=== PATIENT | female | born 1950 | race Caucasian/White ===

== ENCOUNTER 2018-03-13 12:06 | Inpatient (IN) ==
[2018-03-13] MEDS ORDERED: ORPHENADRINE 60 MG/2 ML VIAL IV STA (12:36)
[2018-03-13] MEDS ORDERED: KETOROLAC 30 MG/1 ML VIAL IV STA (12:36)
[2018-03-13] MEDS ORDERED: ONDANSETRON 4 MG/2 ML VIAL IV STA (12:36)
[2018-03-13] MEDS ORDERED: methylPREDNISolone SOD SUC 125 MG/2 ML VIAL IV STA (12:36)
[2018-03-13] MEDS ORDERED: ACETAMINOPHEN 325 MG TABLET PO PRN (14:10)
[2018-03-13] MEDS ORDERED: MORPHINE 4 MG/1 ML VIAL IV PRN (14:10)
[2018-03-13] MEDS ORDERED: GLUCAGON 1 MG VIAL IM PRN (14:10)
[2018-03-13] MEDS ORDERED: DEXTROSE 50% 25 GM/50 ML VIAL IV PRN (14:10)
[2018-03-13] MEDS ORDERED: ONDANSETRON 4 MG/2 ML VIAL IV PRN (14:10)
[2018-03-13 14:16] LABS: Basophils # 0.1 10*3/uL (0.0-0.2); Basophils % 0.5 % (0.0-0.8); Eosinophils # 0.2 10*3/uL (0.0-0.87); Eosinophils % 1.4 % (0.00-10.9); Hematocrit 37.6 VOL% (35.7-47.0); Hemoglobin 12.1 GM/DL (12.0-16.0); Immature Granulocytes % 0.5 %; Immature Granulocytes Absolute 0.05 #; Lymphocytes # 2.5 10*3/uL (1.4-4.0); Lymphocytes % 22.7 % (21.3-54.2); Mean Corpuscular HGB Conc 32.2 GM/DL (32-36); Mean Corpuscular Hemoglobin 30 PG (27-34); Mean Corpuscular Volume 91.9 FL (87-102); Mean Platelet Volume 10.4 FL (9.6-12.0); Monocytes # 0.4 10*3/uL (0.11-0.8); Monocytes % 4.1 % (1.7-12.7); Neutrophils # 7.7 10*3/uL (1.4-7.4); Neutrophils % 70.8 % (38.7-73.9); Platelet Count 230 T/CUMM (130-400); Red Blood Count 4.09 MC/CUMM (3.8-5.5); Red Cell Distribution Width 13.3 % (9.3-17.3); White Blood Count 10.8 T/CUMM (4-12)
[2018-03-13 14:28] LABS: PT Patient Result 10.9 SECS; Partial Thromboplastin Time 28.2 SECS (0-40)
[2018-03-13 14:42] LABS: Alanine Aminotransferase 36 U/L (13-56); Albumin 2.9 G/DL (3.4-5.0); Alkaline Phosphatase 161 U/L (45-117); Aspartate Amino Transferase 45 U/L (0-37); Bilirubin,Total < 0.39 MG/DL (0.2-1.0); Blood Urea Nitrogen 17 MG/DL (7-18); Calcium 8.7 MG/DL (8.5-10.1); Glucose 146 MG/DL (74-106); Osmolality,Calculated 283.4 MOS/KG (273-304); Sodium 140 MMOL/L (136-145); Total Protein 7.1 G/DL (6.4-8.3)
[2018-03-13] MEDS ORDERED: METHOCARBAMOL 500 MG TABLET PO PRN (15:44)
[2018-03-13] MEDS: INSULIN LISPRO 100 UNIT/ML SUBCUT SCH ×2 (16:31→21:30)
[2018-03-13] MEDS: LIDOCAINE 5% PATCH TRANSDERM SCH (16:37)
[2018-03-13 19:16] LABS: Apearance,Urine CLEAR (Clear); Bacteria,Urine Moderate /HPF (Few); Bilirubin,Urine Negative (Negative); Blood, Urine Negative (Negative); Glucose,Urine (UA) 50 mg/dL (Negative); Ketones,Urine Negative (Negative); Mucus,Urine Occasional /LPF (Occasional); Nitrite,Urine Positive (Negative); Protein,Urine Negative; RBC,Urine 1 /HPF (0-4); Urine Color Yellow (Yellow); Urine Specific Gravity 1.023 (1.001-1.035); Urine Urobilinogen < 2.0 EU/DL (0.2-1.0); WBC,Urine 2 /HPF (0-6)
[2018-03-13] MEDS: OXYBUTYNIN 5 MG TABLET PO SCH (21:28)
[2018-03-13] MEDS: SERTRALINE 25 MG TABLET PO SCH (21:28)
[2018-03-13] MEDS: ATORVASTATIN 40 MG TABLET PO SCH (21:28)
[2018-03-14] MEDS: traMADol 50 MG TABLET PO PRN ×3 (04:35→20:41)
[2018-03-14 05:23] LABS: Basophils % 0.3 % (0.0-0.8); Eosinophils % 0.3 % (0.00-10.9); Hematocrit 36.3 VOL% (35.7-47.0); Hemoglobin 11.4 GM/DL (12.0-16.0); Immature Granulocytes % 0.5 %; Immature Granulocytes Absolute 0.06 #; Lymphocytes # 2.8 10*3/uL (1.4-4.0); Lymphocytes % 23.4 % (21.3-54.2); Mean Corpuscular HGB Conc 31.4 GM/DL (32-36); Mean Corpuscular Hemoglobin 29 PG (27-34); Mean Corpuscular Volume 93.3 FL (87-102); Mean Platelet Volume 10.6 FL (9.6-12.0); Monocytes # 0.8 10*3/uL (0.11-0.8); Monocytes % 6.3 % (1.7-12.7); Neutrophils # 8.3 10*3/uL (1.4-7.4); Neutrophils % 69.2 % (38.7-73.9); Platelet Count 241 T/CUMM (130-400); Red Blood Count 3.89 MC/CUMM (3.8-5.5); Red Cell Distribution Width 13.3 % (9.3-17.3)
[2018-03-14 05:43] LABS: Risk Ratio 1.9; VLDL CHOLESTEROL 17.2 MG/DL
[2018-03-14 05:55] LABS: Albumin 2.8 G/DL (3.4-5.0); Bilirubin,Total 0.4 MG/DL (0.2-1.0); Calcium 8.6 MG/DL (8.5-10.1); Osmolality,Calculated 280.5 MOS/KG (273-304); Potassium 3.9 MMOL/L (3.5-5.1); Total Protein 6.9 G/DL (6.4-8.3)
[2018-03-14] MEDS: INSULIN LISPRO 100 UNIT/ML SUBCUT SCH ×4 (07:30→20:23)
[2018-03-14] MEDS: METOPROLOL SUCCINATE XL 25 MG TABLET PO SCH (09:25)
[2018-03-14] MEDS: LISINOPRIL 10 MG TABLET PO SCH (09:25)
[2018-03-14] MEDS: SERTRALINE 50 MG TABLET PO SCH (09:25)
[2018-03-14] MEDS: OXYBUTYNIN 5 MG TABLET PO SCH ×2 (09:25→20:41)
[2018-03-14] MEDS: PANTOPRAZOLE 40 MG TABLET PO SCH (09:25)
[2018-03-14] MEDS: POLYETHYLENE GLYCOL POWDER 17 GM PACK PO SCH (09:30)
[2018-03-14] MEDS: LIDOCAINE 5% PATCH TRANSDERM SCH (09:30)
[2018-03-14] MEDS ORDERED: LACTULOSE 20 GM/30 ML UDCUP PO PRN (10:59)
[2018-03-14] MEDS ORDERED: CIPROFLOXACIN 500 MG TABLET PO SCH (11:00)
[2018-03-14] MEDS ORDERED: methylPREDNISolone SOD SUC 125 MG/2 ML VIAL IV PRN (11:09)
[2018-03-14] MEDS: cefTRIAXone 1,000 MG in SYRINGE 1 EACH IV SCH (11:55)
[2018-03-14] MEDS ORDERED: POLYETHYLENE GLYCOL POWDER 17 GM PACK PO SCH (12:00)
[2018-03-14] MEDS: SERTRALINE 25 MG TABLET PO SCH (20:41)
[2018-03-14] MEDS: ATORVASTATIN 40 MG TABLET PO SCH (20:41)
[2018-03-14] MEDS: DOCUSATE/SENNA 50-8.6 MG TABLET PO SCH (20:42)
[2018-03-15] MEDS: INSULIN LISPRO 100 UNIT/ML SUBCUT SCH ×3 (07:30→16:25)
[2018-03-15] MEDS: LIDOCAINE 5% PATCH TRANSDERM SCH (09:00)
[2018-03-15] MEDS: DOCUSATE/SENNA 50-8.6 MG TABLET PO SCH (09:00)
[2018-03-15] MEDS: POLYETHYLENE GLYCOL POWDER 17 GM PACK PO SCH (09:00)
[2018-03-15] MEDS: SERTRALINE 50 MG TABLET PO SCH (09:00)
[2018-03-15] MEDS: OXYBUTYNIN 5 MG TABLET PO SCH (09:00)
[2018-03-15] MEDS: PANTOPRAZOLE 40 MG TABLET PO SCH (09:40)
[2018-03-15] MEDS: LISINOPRIL 10 MG TABLET PO SCH (09:40)
[2018-03-15] MEDS: METOPROLOL SUCCINATE XL 25 MG TABLET PO SCH (09:40)
[2018-03-15] MEDS: cefTRIAXone 1,000 MG in SYRINGE 1 EACH IV SCH (10:21)
[2018-03-15] MEDS ORDERED: TISSUE ADHESIVE 1 EACH APPLICATOR TOP ONE (10:32)
[2018-03-15] MEDS ORDERED: DEXTROSE 50% 25 GM/50 ML VIAL IV ONE ×2 (10:46→10:53)
[2018-03-15] MEDS ORDERED: MINERAL OIL/PETROLATUM OPH OINT 3.5 GM TUBE ONE ×2 (11:11→12:21)
[2018-03-15] MEDS ORDERED: LIDOCAINE 1% 20 ML VIAL ONE (11:24)
[2018-03-15] MEDS ORDERED: SUGAMMADEX 200 MG/2 ML VIAL IV ONE (11:41)
[2018-03-15] MEDS ORDERED: RACEPINEPHRINE 0.5 ML NEB RESP TX ONE (12:13)
[2018-03-15] MEDS ORDERED: MIDAZOLAM 2 MG/2 ML VIAL ONE (12:18)
[2018-03-15] MEDS ORDERED: fentaNYL 100 MCG/2 ML VIAL ONE (12:19)
[2018-03-15] MEDS ORDERED: PHENYLEPHRINE 1 MG/10 ML SYRINGE IV ONE (12:20)
[2018-03-15] MEDS ORDERED: PROPOFOL 200 MG/20 ML VIAL IV ONE (12:20)
[2018-03-15] MEDS ORDERED: SEVOFLURANE 1 UNIT/15 MINUTE INH ONE (12:20)
[2018-03-15] MEDS ORDERED: ONDANSETRON 4 MG/2 ML VIAL ONE (12:20)
[2018-03-15] MEDS ORDERED: ROCURONIUM 100 MG/10 ML VIAL IV ONE (12:20)
[2018-03-15] MEDS: traMADol 50 MG TABLET PO PRN (16:25)
[2018-03-15 16:47] VITALS: BP 133/73
== END 2018-03-15 18:35 | disposition home or self-care (01) | DRG 516 ==
LOC: N.ED 12:06 → N.EDINP 14:10 → N.3E 14:54
PROVIDERS: ADMIT Internal Medicine; ATTEND Internal Medicine

== ENCOUNTER 2019-02-18 08:54 | Observation (INO) ==
[2019-02-18] MEDS ORDERED: KETOROLAC 60 MG/2 ML VIAL IM STA (09:38)
[2019-02-18] MEDS ORDERED: METHOCARBAMOL 500 MG TABLET PO STA (09:38)
[2019-02-18] MEDS ORDERED: ONDANSETRON ODT 4 MG TABLET PO STA (09:39)
[2019-02-18] MEDS ORDERED: ONDANSETRON 4 MG/2 ML VIAL IV PRN (11:59)
[2019-02-18] MEDS ORDERED: [UNRECOGNIZED DRUG - OTHER] PO PRN (11:59)
[2019-02-18] MEDS ORDERED: GLUCAGON 1 MG VIAL IM PRN (11:59)
[2019-02-18] MEDS ORDERED: ACETAMINOPHEN 325 MG TABLET PO PRN (11:59)
[2019-02-18] MEDS ORDERED: HydrOXYzine PAMOATE 25 MG CAPSULE PO PRN (11:59)
[2019-02-18] MEDS ORDERED: DULoxetine 20 MG CAPSULE PO PRN (11:59)
[2019-02-18] MEDS ORDERED: DEXTROSE 50% 25 GM/50 ML VIAL IV PRN (11:59)
[2019-02-18] MEDS ORDERED: [UNRECOGNIZED DRUG - OTHER] PO SCH (11:59)
[2019-02-18] MEDS: INSULIN REGULAR 100 UNIT/ML SUBCUT SCH ×2 (13:14→18:56)
[2019-02-18] MEDS: SODIUM CHLORIDE 0.9% 1,000 ML IV SCH (13:14)
[2019-02-18] MEDS: DOCUSATE/SENNA 50-8.6 MG TABLET PO SCH (20:21)
[2019-02-18] MEDS: DOCUSATE SODIUM 100 MG CAPSULE PO SCH (20:21)
[2019-02-18] MEDS: OXYBUTYNIN 5 MG TABLET PO SCH (20:21)
[2019-02-18] MEDS ORDERED: [UNRECOGNIZED DRUG - OTHER] PO SCH (21:00)
[2019-02-18] MEDS ORDERED: NITROFURANTOIN MACRO/MONO 100 MG CAPSULE PO SCH (21:00)
[2019-02-18] MEDS: HYDROmorphone 2 MG/1 ML VIAL IV PRN (21:18)
[2019-02-19] MEDS: INSULIN REGULAR 100 UNIT/ML SUBCUT SCH ×3 (01:02→12:27)
[2019-02-19] MEDS: SODIUM CHLORIDE 0.9% 1,000 ML IV SCH ×2 (01:14→15:23)
[2019-02-19 04:48] LABS: Basophils # 0.1 10*3/uL (0.0-0.2); Basophils % 0.5 % (0.0-0.8); Eosinophils # 0.3 10*3/uL (0.0-0.87); Eosinophils % 3.5 % (0.00-10.9); Hematocrit 34.6 VOL% (35.7-47.0); Hemoglobin 10.9 GM/DL (12.0-16.0); Immature Granulocytes % 0.4 %; Immature Granulocytes Absolute 0.04 #; Lymphocytes # 2.9 10*3/uL (1.4-4.0); Lymphocytes % 30.7 % (21.3-54.2); Mean Corpuscular HGB Conc 31.5 GM/DL (32-36); Mean Corpuscular Volume 92.3 FL (87-102); Mean Platelet Volume 10.7 FL (9.6-12.0); Monocytes % 8.1 % (1.7-12.7); Neutrophils % 56.8 % (38.7-73.9); Platelet Count 176 T/CUMM (130-400); Red Blood Count 3.75 MC/CUMM (3.8-5.5); Red Cell Distribution Width 14.9 % (9.3-17.3); White Blood Count 9.3 T/CUMM (4-12)
[2019-02-19 05:21] LABS: Albumin 2.2 G/DL (3.4-5.0); Bilirubin,Total 0.7 MG/DL (0.2-1.0); Calcium 8.3 MG/DL (8.5-10.1); Total Protein 5.9 G/DL (6.4-8.3)
[2019-02-19] MEDS: HYDROmorphone 2 MG/1 ML VIAL IV PRN (06:34)
[2019-02-19] MEDS: OXYBUTYNIN 5 MG TABLET PO SCH (09:00)
[2019-02-19] MEDS ORDERED: METOPROLOL SUCCINATE XL 25 MG TABLET PO SCH (09:00)
[2019-02-19] MEDS ORDERED: ATORVASTATIN 40 MG TABLET PO SCH (09:00)
[2019-02-19] MEDS ORDERED: LISINOPRIL 10 MG TABLET PO SCH (09:00)
[2019-02-19] MEDS ORDERED: SERTRALINE 100 MG TABLET PO SCH (09:00)
[2019-02-19] MEDS ORDERED: MELOXICAM 7.5 MG TABLET PO SCH (09:00)
[2019-02-19] MEDS ORDERED: PANTOPRAZOLE 40 MG TABLET PO SCH (09:00)
[2019-02-19] MEDS: DOCUSATE SODIUM 100 MG CAPSULE PO SCH (09:00)
[2019-02-19] MEDS: DOCUSATE/SENNA 50-8.6 MG TABLET PO SCH (09:00)
[2019-02-19] MEDS ORDERED: NF- (Mirabegron [Myrbetriq] 25 MG) PO SCH (09:00)
[2019-02-19 11:06] LABS: Apearance,Urine CLEAR (Clear); Bilirubin,Urine Negative (Negative); Blood, Urine Negative (Negative); Glucose,Urine (UA) 50 mg/dL (Negative); Hyaline Casts,Urine 3 /LPF (0-3); Ketones,Urine Negative (Negative); Mucus,Urine Occasional /LPF (Occasional); Nitrite,Urine Negative (Negative); Protein,Urine Negative; RBC,Urine 6 /HPF (0-4); Squamous Epithelial Cell,Urine Occasional /HPF (0-10); Urine Color Yellow (Yellow); Urine Specific Gravity 1.023 (1.001-1.035); Urine Urobilinogen < 2.0 EU/DL (0.2-1.0); WBC,Urine 2 /HPF (0-6)
[2019-02-19 11:44] VITALS: BP 127/63
[2019-02-19] MEDS ORDERED: DEXTROSE 50% 25 GM/50 ML VIAL IV PRN (12:02)
== END 2019-02-19 15:10 | disposition home health service (06) ==
LOC: EDUNIT# → EDBD → N.ED 08:54 → N.EDINP 08:54 → N.3E 10:37
PROVIDERS: ADMIT Family Medicine; ATTEND Family Medicine

== ENCOUNTER 2022-04-25 08:36 | Inpatient (IN) ==
[2022-04-25] MEDS ORDERED: MORPHINE 2 MG/1 ML SYRINGE IV ONE (09:06)
[2022-04-25] MEDS ORDERED: ONDANSETRON 4 MG/2 ML VIAL IV ONE (09:06)
[2022-04-25 09:39] LABS: Basophils % 0.3 % (0.0-0.8); Eosinophils # 0.1 10*3/uL (0.0-0.87); Eosinophils % 0.9 % (0.00-10.9); Hematocrit 36.7 VOL% (35.7-47.0); Hemoglobin 11.5 GM/DL (12.0-16.0); Immature Granulocytes % 0.5 %; Immature Granulocytes Absolute 0.06 #; Lymphocytes # 2.5 10*3/uL (1.4-4.0); Lymphocytes % 21.6 % (21.3-54.2); Mean Corpuscular HGB Conc 31.3 GM/DL (32-36); Mean Platelet Volume 10.4 FL (9.6-12.0); Monocytes # 0.6 10*3/uL (0.11-0.8); Monocytes % 5.2 % (1.7-12.7); Neutrophils % 71.5 % (38.7-73.9); Platelet Count 219 T/CUMM (130-400); Red Blood Count 4.08 MC/CUMM (3.8-5.5); Red Cell Distribution Width 15.2 % (9.3-17.3); White Blood Count 11.5 T/CUMM (4-12)
[2022-04-25 09:48] LABS: PT Patient Result 11.2 SECS (10.1-12.1)
[2022-04-25 10:01] LABS: Albumin 3.3 G/DL (3.4-5.0); Bilirubin,Total 0.6 MG/DL (0.20-1.00); Calcium 9.4 MG/DL (8.5-10.1); Osmolality,Calculated 286.4 MOS/KG (273-304); Potassium 4.4 MMOL/L (3.5-5.1); Total Protein 7.1 G/DL (6.4-8.2)
[2022-04-25] MEDS ORDERED: PROMETHAZINE 25 MG/1 ML VIAL IM PRN (10:09)
[2022-04-25] MEDS ORDERED: ONDANSETRON 4 MG/2 ML VIAL IV PRN ×2 (10:09→16:12)
[2022-04-25] MEDS ORDERED: ACETAMINOPHEN 325 MG TABLET PO PRN ×2 (10:09→14:26)
[2022-04-25] MEDS ORDERED: SODIUM CHLORIDE 0.9% 1,000 ML IV SCH (10:30)
[2022-04-25] MEDS: MORPHINE 2 MG/1 ML SYRINGE IV PRN (11:47)
[2022-04-25] MEDS ORDERED: KETAMINE 500 MG/10 ML VIAL ONE (13:17)
[2022-04-25] MEDS ORDERED: buprenorphine HCL 0.3 MG/ML VIAL ONE (13:18)
[2022-04-25] MEDS ORDERED: SUCCINYLCHOLINE 200 MG/10 ML VIAL ONE (13:52)
[2022-04-25] MEDS ORDERED: DEXAMETHASONE 4 MG/1 ML VIAL ONE (13:57)
[2022-04-25] MEDS ORDERED: LIDOCAINE 1% 5 ML VIAL ONE (13:58)
[2022-04-25] MEDS ORDERED: ROPIVACAINE 0.5% 30 ML VIAL ONE (13:58)
[2022-04-25] MEDS ORDERED: MAGNESIUM SULF RIDER 2 GM/50 ML PREMIX IV PRN (14:27)
[2022-04-25] MEDS ORDERED: MAGNESIUM SULF RIDER 4 GM/100 ML PREMIX IV PRN (14:27)
[2022-04-25] MEDS ORDERED: POTASSIUM CHLORIDE RIDER 10 MEQ/100 ML PREMIX IV PRN (14:27)
[2022-04-25] MEDS ORDERED: DEXTROSE 10% 250 ML BAG IV PRN (14:27)
[2022-04-25] MEDS ORDERED: GLUCAGON 1 MG VIAL IM PRN (14:27)
[2022-04-25] MEDS ORDERED: PHENYLEPHRINE 1 MG/10 ML SYRINGE IV ONE (14:38)
[2022-04-25] MEDS ORDERED: MAGNESIUM HYDROXIDE SUSP 30 ML UDCUP PO PRN (14:48)
[2022-04-25] MEDS ORDERED: ROCURONIUM 50 MG/5 ML VIAL IV ONE (15:16)
[2022-04-25] MEDS ORDERED: GLYCOPYRROLATE 0.4 MG/2 ML VIAL ONE (15:16)
[2022-04-25] MEDS ORDERED: NEOSTIGMINE 10 MG/10 ML VIAL ONE (15:34)
[2022-04-25] MEDS ORDERED: SUGAMMADEX 200 MG/2 ML VIAL IV ONE (15:47)
[2022-04-25] MEDS ORDERED: HYDROmorphone 1 MG/1 ML SYRINGE ONE (16:09)
[2022-04-25] MEDS ORDERED: DESFLURANE 1 UNIT/15 MINUTE INH ONE (16:10)
[2022-04-25] MEDS ORDERED: LACTATED RINGERS 1,000 ML IV ONE (16:10)
[2022-04-25] MEDS: HYDROmorphone 1 MG/1 ML SYRINGE IV PRN ×2 (16:11→16:19)
[2022-04-25] MEDS: INSULIN LISPRO 100 UNIT/ML SUBCUT SCH ×2 (17:56→20:50)
[2022-04-25] MEDS: DOCUSATE SODIUM 100 MG CAPSULE PO SCH (20:47)
[2022-04-25] MEDS: traZODone 50 MG TABLET PO SCH (20:47)
[2022-04-25] MEDS: SERTRALINE 25 MG TABLET PO SCH (20:47)
[2022-04-25] MEDS: GABAPENTIN 100 MG CAPSULE PO SCH (20:48)
[2022-04-25] MEDS: OXYBUTYNIN 5 MG TABLET PO SCH (20:49)
[2022-04-26] MEDS: MORPHINE 2 MG/1 ML SYRINGE IV PRN ×3 (03:26→13:15)
[2022-04-26 05:04] LABS: Basophils % 0.1 % (0.0-0.8); Eosinophils % 0.1 % (0.00-10.9); Hematocrit 30.5 VOL% (35.7-47.0); Hemoglobin 9.2 GM/DL (12.0-16.0); Immature Granulocytes % 0.4 %; Immature Granulocytes Absolute 0.04 #; Lymphocytes # 1.4 10*3/uL (1.4-4.0); Lymphocytes % 15.3 % (21.3-54.2); Mean Corpuscular HGB Conc 30.2 GM/DL (32-36); Mean Corpuscular Volume 91.6 FL (87-102); Mean Platelet Volume 10.7 FL (9.6-12.0); Monocytes # 0.5 10*3/uL (0.11-0.8); Monocytes % 5.7 % (1.7-12.7); Neutrophils % 78.4 % (38.7-73.9); Platelet Count 170 T/CUMM (130-400); Red Blood Count 3.33 MC/CUMM (3.8-5.5); Red Cell Distribution Width 14.9 % (9.3-17.3); White Blood Count 9.4 T/CUMM (4-12)
[2022-04-26 05:31] LABS: Albumin 2.7 G/DL (3.4-5.0); Bilirubin,Total 0.4 MG/DL (0.20-1.00); Calcium 8.7 MG/DL (8.5-10.1); Osmolality,Calculated 282.5 MOS/KG (273-304); Potassium 4.3 MMOL/L (3.5-5.1)
[2022-04-26] MEDS: PANTOPRAZOLE 40 MG TABLET PO SCH (08:29)
[2022-04-26] MEDS ORDERED: PANTOPRAZOLE 40 MG TABLET PO SCH (09:00)
[2022-04-26] MEDS: lisinopriL 10 MG TABLET PO SCH (09:11)
[2022-04-26] MEDS: SERTRALINE 100 MG TABLET PO SCH (09:11)
[2022-04-26] MEDS: DONEPEZIL 5 MG TABLET PO SCH (09:11)
[2022-04-26] MEDS: METOPROLOL SUCCINATE XL 25 MG TABLET PO SCH (09:11)
[2022-04-26] MEDS: GABAPENTIN 100 MG CAPSULE PO SCH ×2 (09:12→21:47)
[2022-04-26] MEDS: OXYBUTYNIN 5 MG TABLET PO SCH ×2 (09:12→21:46)
[2022-04-26] MEDS: MEMANTINE 5 MG TABLET PO SCH (09:12)
[2022-04-26] MEDS: MELOXICAM 7.5 MG TABLET PO SCH (09:12)
[2022-04-26] MEDS: DOCUSATE SODIUM 100 MG CAPSULE PO SCH ×2 (09:12→21:46)
[2022-04-26] MEDS: INSULIN LISPRO 100 UNIT/ML SUBCUT SCH ×4 (09:55→21:46)
[2022-04-26] MEDS: FONDAPARINUX 2.5 MG/0.5 ML SYRINGE SUBCUT SCH (13:15)
[2022-04-26] MEDS: traZODone 50 MG TABLET PO SCH (21:46)
[2022-04-26] MEDS: SERTRALINE 25 MG TABLET PO SCH (21:46)
[2022-04-27 05:37] LABS: Basophils # 0.1 10*3/uL (0.0-0.2); Basophils % 0.5 % (0.0-0.8); Eosinophils # 0.2 10*3/uL (0.0-0.87); Eosinophils % 2.1 % (0.00-10.9); Hematocrit 29.1 VOL% (35.7-47.0); Hemoglobin 8.9 GM/DL (12.0-16.0); Immature Granulocytes % 0.5 %; Immature Granulocytes Absolute 0.05 #; Lymphocytes # 2.5 10*3/uL (1.4-4.0); Mean Corpuscular HGB Conc 30.6 GM/DL (32-36); Mean Corpuscular Volume 90.4 FL (87-102); Mean Platelet Volume 10.4 FL (9.6-12.0); Monocytes # 0.7 10*3/uL (0.11-0.8); Monocytes % 7.3 % (1.7-12.7); Neutrophils % 64.6 % (38.7-73.9); Platelet Count 155 T/CUMM (130-400); Red Blood Count 3.22 MC/CUMM (3.8-5.5); Red Cell Distribution Width 15.3 % (9.3-17.3); White Blood Count 10.1 T/CUMM (4-12)
[2022-04-27 05:56] LABS: Risk Ratio 2.85; VLDL Cholesterol 19.4 MG/DL
[2022-04-27] MEDS: PANTOPRAZOLE 40 MG TABLET PO SCH (06:01)
[2022-04-27 06:02] LABS: Osmolality,Calculated 291.3 MOS/KG (273-304); Potassium 4.2 MMOL/L (3.5-5.1)
[2022-04-27] MEDS: MELOXICAM 7.5 MG TABLET PO SCH (08:45)
[2022-04-27] MEDS: MEMANTINE 5 MG TABLET PO SCH (08:45)
[2022-04-27] MEDS: GABAPENTIN 100 MG CAPSULE PO SCH (08:45)
[2022-04-27] MEDS: METOPROLOL SUCCINATE XL 25 MG TABLET PO SCH (08:45)
[2022-04-27] MEDS: DONEPEZIL 5 MG TABLET PO SCH (08:46)
[2022-04-27] MEDS: SERTRALINE 100 MG TABLET PO SCH (08:46)
[2022-04-27] MEDS: lisinopriL 10 MG TABLET PO SCH (08:46)
[2022-04-27] MEDS: OXYBUTYNIN 5 MG TABLET PO SCH (08:46)
[2022-04-27] MEDS: DOCUSATE SODIUM 100 MG CAPSULE PO SCH (08:46)
[2022-04-27] MEDS: INSULIN LISPRO 100 UNIT/ML SUBCUT SCH ×2 (10:48→14:24)
[2022-04-27 11:14] VITALS: BP 116/48
[2022-04-27] MEDS: FONDAPARINUX 2.5 MG/0.5 ML SYRINGE SUBCUT SCH (14:13)
== END 2022-04-27 14:25 | disposition swing bed (61) | DRG 481 ==
LOC: N.ED 08:36 → N.EDINP 10:09 → N.3E 11:20
PROVIDERS: ADMIT Family Medicine; ATTEND Family Medicine